=== PATIENT | male | born 1985 | race African-American/Black ===

== ENCOUNTER 2018-08-19 08:36 | Emergency (ER) | payer SELFPAY ==
[~2018-08-19] VITALS: Ht 180.3 cm; Wt 113.0 kg
[2018-08-19] MEDS ORDERED: IBUPROFEN 800MG TABLET PO ONE (12:15)
[2018-08-19 12:28] VITALS: BP 124/77
[2018-08-19] MEDS ORDERED: HYDROCODONE/ACETAMINOPHEN 5/325MG TABLET PO ONE (12:30)
== END 2018-08-19 14:26 | disposition home or self-care (01) ==
LOC: ER 08:36
DX: M79.671 Pain in right foot (principal); M25.571 Pain in right ankle and joints of right foot; F12.10 Cannabis abuse, uncomplicated; Z88.6 Allergy status to analgesic agent; Z98.890 Other specified postprocedural states
CPT/HCPCS: 73610; 73620; 99283

== ENCOUNTER 2024-08-09 21:49 | Emergency (ER) | payer MEDICAID ==
[~2024-08-09] VITALS: Ht 180.3 cm; Wt 113.0 kg
[2024-08-09 22:01] VITALS: O2SAT 99
[2024-08-09 22:07] VITALS: BP 162/112; PULSE 91; RESP 16; TEMP 37.7; O2SAT 98
== END 2024-08-09 22:51 | disposition home or self-care (01) ==
LOC: ER 21:49
DX: B34.9 Viral infection, unspecified (principal); F12.90 Cannabis use, unspecified, uncomplicated; Z88.6 Allergy status to analgesic agent
CPT/HCPCS: 99281

== ENCOUNTER 2024-08-12 02:14 | Emergency (ER) | payer MEDICAID ==
[~2024-08-12] VITALS: Ht 180.3 cm; Wt 106.0 kg
[2024-08-12 02:23] VITALS: O2SAT 99
[2024-08-12 03:43] LABS: BASOPHILS % 0.6 % (0.0-2.0); EOSINOPHILS % 0.1 % (0.0-5.0); HEMATOCRIT. 44.6 % (42.0-52.0); HEMOGLOBIN. 14.9 g/dL (14.0-18.0); LYMPHOCYTES % 19.4 % (20.0-50.0); MEAN CORPUSCULAR HEMOGLOBIN 30.8 pg (28.0-32.0); MEAN CORPUSCULAR HGB CONC 33.3 g/dL (31.0-37.0); MEAN CORPUSCULAR VOLUME 92.7 fL (80.0-94.0); MEAN PLATELET VOLUME 7.1 fl (7.4-10.4); MONOCYTES % 12.9 % (2.0-8.0); PLATELET 251 x1000/uL (130-400); RED BLOOD CELL COUNT 4.81 mill/uL (4.7-6.1); RED CELL DISTRIBUTION WIDTH 13.1 % (11.6-14.6)
[2024-08-12 03:49] LABS: CARBON DIOXIDE 26 mEq/L (21-32); CHLORIDE 103 mEq/L (98-107); POTASSIUM 3.3 mEq/L (3.5-5.1); SODIUM 139 mEq/L (136-145)
[2024-08-12 03:55] LABS: GLUCOSE 111 mg/dL (70-105); UREA NITROGEN BLOOD 8 mg/dL (9-23)
[2024-08-12] MEDS ORDERED: ACET-2708 MT (04:23)
[2024-08-12] MEDS ORDERED: GUAI400T93 MT (04:23)
[2024-08-12] MEDS: DEXAMETHASONE 4MG/ML 1ML VIAL IM ONE (04:37)
[2024-08-12 05:15] VITALS: BP 129/88; PULSE 80; RESP 18; TEMP 36.8; O2SAT 99
[2024-08-12 05:55] LABS: CLARITY URINE CLEAR (CLEAR); COLOR URINE YELLOW (YELLOW); GLUCOSE URINE NEGATIVE (NEGATIVE); KETONES URINE NEGATIVE (NEGATIVE); LEUKOCYTE ESTERASE URINE NEGATIVE (NEGATIVE); NITRITE URINE NEGATIVE (NEGATIVE); OCCULT BLOOD URINE NEGATIVE (NEGATIVE); PH URINE 7.5 (4.5-8.0); PROTEIN URINE NEGATIVE (NEGATIVE); SPECIFIC GRAVITY URINE 1.019 (1.005-1.030); UROBILINOGEN URINE 0.2 E.U./dL (0.2-1.0)
[2024-08-12 06:36] LABS: INFLUENZA TYPE A Presumptive Negative (Pres. Neg.); INFLUENZA TYPE B Presumptive Negative (Pres. Neg.)
== END 2024-08-12 05:15 | disposition home or self-care (01) ==
LOC: ER 02:14
DX: J11.1 Influenza due to unidentified influenza virus with other respiratory manifestations (principal); F12.10 Cannabis abuse, uncomplicated; Z88.6 Allergy status to analgesic agent
CPT/HCPCS: 99284; 71045; 80048; 81003; 85025; 87804 ×2; 36415; 96372; J1100